=== PATIENT | female | born 1940 | race Caucasian/White ===

== ENCOUNTER 2018-12-31 15:20 | Outpatient (CLI) | payer MEDICARE ==
--- NOTE | 2018-12-31 15:56 | ULT ---
EXAM: US Soft Tissue Other PROVIDED CLINICAL HISTORY: Contusion right thigh. COMPARISON: None FINDINGS: Limited sonographic evaluation of the lateral right thigh was performed in the region of the patient' s contusion. No discrete fluid collection or mass is seen in the subcutaneous soft tissues at the level of the contusion. No other findings. IMPRESSION: No sonographic abnormality is seen in the region of the patient's contusion. However, if there is a p alpable abnormality or typical findings of contusion do not resolve, MRI can be performed for further evaluation
== END 2018-12-31 15:21 | disposition home or self-care (01) ==
LOC: ULT 15:20
PROVIDERS: ATTEND Physician Assistant
DX: S70.11XA Contusion of right thigh, initial encounter (principal)
CPT/HCPCS: 76999

== ENCOUNTER 2019-03-10 14:07 | Outpatient (CLI) | payer MEDICARE ==
[~2019-03-10 14:07] MED LIST: Gadobenate Dimeglumine 529 MG/1 ML (20ML VIAL) ONE
--- NOTE | 2019-03-10 15:32 | MRI ---
MRI of thebrain with and without contrast: 03/10/2019 COMPARISON:None available HISTORY:Six-month history of memory loss TECHNIQUE: Multiplanar multisequence MR imaging of thebrain with and without contrast Findings:The diffusion weighted imaging demonstrates no evidence for acute infarction and the axial g radient echo imaging demonstrates no evidence for intracranial hemorrhage. Imaged paranasal sinuses and mastoid air cells demonstrate normal signal intensity. Arterial flow voi ds at the axial level of the skull base appear grossly unremarkable on the T2-weighted imaging. There is extensive periventricular, deep, and subcortical white matter T2 and FLAIR hyperintensity, e vidence of severe small vessel disease. There is associated moderate cerebral volume loss. Postcontrast imaging demonstrates no abnormal enhancement within the brain parenchyma. Regional bone marrow signal intensity appears grossly unremarkable. IMPRESSION:Evidence of severe small vessel disease. No acute findings.
== END 2019-03-10 14:08 | disposition home or self-care (01) ==
LOC: BICMRI 14:07
PROVIDERS: ATTEND Psychiatry & Neurology Neurology
DX: R41.3 Other amnesia (principal); I67.9 Cerebrovascular disease, unspecified
CPT/HCPCS: 70553; 82565; A9577

== ENCOUNTER 2021-03-09 07:07 | Emergency (ER) | payer MEDICARE ==
[2021-03-09 07:55] LABS: #Basophils 0.1 thou/uL (0.0-0.2); #Eosinphils 0.4 thou/uL (0.0-0.7); #Monocytes 0.4 thou/uL (0.11-0.59); #Neutrophils 2.9 thou/uL (1.40-6.50); %Basophils 1.5 % (0.0-1.0); %Eosinophils 7.4 % (0.0-10.0); %Lymphocytes 34.6 % (21.0-51.0); %Monocytes 6.2 % (0.0-10.0); %Neutrophils 50.3 % (42.0-75.0); Hemoglobin 12.4 g/dL (12.0-16.0); Mean Corpuscular HGB CONC 32.4 g/dL (32.0-36.0); Mean Corpuscular Hemoglobin 31.2 pg (27.0-31.0); Mean Corpuscular Volume 96.5 fL (78.0-98.0); Mean Platelet Volume 8.3 fL (7.4-10.4); Platelet Count 249 thou/uL (130-400); RBC Distribution Width 12.9 % (11.5-14.5); Red Blood Cell (RBC) Count 3.96 mill/uL (4.20-5.40); White Blood Cell (WBC) Count 5.7 thou/uL (4.8-10.8)
[2021-03-09 08:08] LABS: ALT (SGPT) 8 U/L (8-55); AST (SGOT) 15 U/L (5-34); Albumin 3.6 g/dL (3.4-4.8); Alkaline Phosphatase 53 U/L (40-110); Anion Gap 13 mmol/L (10-20); BUN (Urea Nitrogen) 12 mg/dL (9.8-20.1); Bilirubin, Total 0.4 mg/dL (0.2-1.2); Calc. Creatinine Clearance 0 mL/min (70-130); Calcium 8.7 mg/dL (7.8-10.44); Carbon Dioxide 26 mmol/L (23-31); Chloride 108 mmol/L (98-107); Globulin 3.2 g/dL (2.4-3.5); Glucose 110 mg/dL (83-110); Potassium 3.6 mmol/L (3.5-5.1); Protein, Total 6.8 g/dL (5.8-8.1); Sodium 143 mmol/L (136-145)
[2021-03-09 08:36] LABS: INR-International Normal Ratio 2.5; Prothrombin Time 27.9 sec (12.0-14.7)
[2021-03-09 08:37] LABS: PTT 56.3 sec (22.9-36.1)
[2021-03-09] MEDS ORDERED: Iopamidol 370 76% 100 ML VIAL ONE (12:16)
== END 2021-03-09 10:05 | disposition home or self-care (01) ==
LOC: ERS 07:07
DX: K57.92 Diverticulitis of intestine, part unspecified, without perforation or abscess without bleeding (principal); I48.91 Unspecified atrial fibrillation; Z79.82 Long term (current) use of aspirin; Z79.899 Other long term (current) drug therapy
CPT/HCPCS: 74177; 80053; 85025; 85610; 85730; 93005; Q9967

== ENCOUNTER 2023-04-16 08:27 | Outpatient (CLI) | payer MEDICARE | END 2023-04-16 08:28 | disposition home or self-care (01) | LOC: BICULT 08:27 | PROVIDERS: ATTEND Family Medicine | DX: R10.13 Epigastric pain (principal); K83.8 Other specified diseases of biliary tract; R16.0 Hepatomegaly, not elsewhere classified | CPT/HCPCS: 76700 ==

== ENCOUNTER 2023-05-03 07:26 | Outpatient (CLI) | payer MEDICARE | END 2023-05-03 07:27 | disposition home or self-care (01) | LOC: MRI 07:26 | PROVIDERS: ATTEND Physician Assistant Medical | DX: K83.8 Other specified diseases of biliary tract (principal); Z90.49 Acquired absence of other specified parts of digestive tract | CPT/HCPCS: 74183; 82565 ==

== ENCOUNTER 2024-02-14 14:07 | Outpatient (CLI) | payer MEDICARE | END 2024-02-14 14:08 | disposition home or self-care (01) | LOC: BICRAD 14:07 | PROVIDERS: ATTEND Family Medicine | DX: M25.562 Pain in left knee (principal); M17.11 Unilateral primary osteoarthritis, right knee; I70.90 Unspecified atherosclerosis ==